=== PATIENT | male | born 1990 | race Caucasian/White ===

== ENCOUNTER 2017-08-11 08:05 | Emergency (ER) | payer OTHER | END 2017-08-11 15:40 | disposition home or self-care (01) | LOC: E/R 08:05 | DX: F13.230 Sedative, hypnotic or anxiolytic dependence with withdrawal, uncomplicated (principal) | CPT/HCPCS: 99283; Z7502 ==

== ENCOUNTER 2018-04-12 08:19 | Emergency (ER) | payer OTHER ==
[2018-04-12] MEDS: LORAZEPAM 1 MG TAB PO (09:09)
[2018-04-12] MEDS: ONDANSETRON (ODT) 4 MG TAB ODT (09:10)
[2018-04-12 09:39] LABS: ADD UMIC NO; UR ASCORBIC ACID NEGATIVE (NEGATIVE); UR BILIRUBIN (Dip) NEGATIVE (NEGATIVE); UR BLOOD (Dip) NEGATIVE (NEGATIVE); UR CLARITY CLEAR (CLEAR); UR COLOR YELLOW (YELLOW); UR GLUCOSE (Dip) NEGATIVE (NEGATIVE); UR KETONES (Dip) NEGATIVE (NEGATIVE); UR LEUKOCYTE ESTERASE (Dip) NEGATIVE Leu/ul (NEGATIVE); UR NITRITE (Dip) NEGATIVE (NEGATIVE); UR SPECIFIC GRAVITY (Dip) 1.015 (1.003-1.030); UR TOTAL PROTEIN (Dip) NEGATIVE (NEGATIVE); UR UROBILINOGEN (Dip) NEGATIVE (NEGATIVE)
== END 2018-04-12 10:12 | disposition home or self-care (01) ==
LOC: FTE 08:19
DX: N50.811 Right testicular pain (principal); F17.210 Nicotine dependence, cigarettes, uncomplicated
CPT/HCPCS: 76870; 81003; 87591; 99284-25